=== PATIENT | female | born 1965 | race Caucasian/White ===

== ENCOUNTER 2017-10-07 08:12 | Emergency (ER) | payer OTHER ==
[~2017-10-07] VITALS: Ht 154.9 cm; Wt 88.0 kg
[2017-10-07 08:12] VITALS: BP_SYST 127
[2017-10-07] MEDS ORDERED: EPINEPHrine 1 MG/ML AMP SUBCUT ONE (08:30)
[2017-10-07] MEDS ORDERED: NACL 0.9% 1,000 ML IV ONE (08:45)
[2017-10-07] MEDS ORDERED: methylPREDNISolone SOD SUCC/PF 62.5 MG/ML VIAL IVP ONE (08:45)
[2017-10-07 08:54] LABS: BASOPHILS # (AUTO) 0.1 K/uL (0.0-0.2); BASOPHILS % (AUTO) 1.5 % (0.0-2.0); EOSINOPHILS # (AUTO) 0.4 K/uL (0.0-0.4); EOSINOPHILS % (AUTO) 5.2 % (0.0-4.0); HEMATOCRIT 42.9 % (36-48); LYMPHOCYTES # (AUTO) 2.1 K/uL (1.0-5.5); LYMPHOCYTES % (AUTO) 30.6 % (20.5-51.5); MEAN CORPUSCULAR HEMOGLOBIN 29 pg (27-31); MEAN CORPUSCULAR HGB CONC 33 % (32-36); MEAN CORPUSCULAR VOLUME 88 fL (79.0-98.0); MONOCYTES # (AUTO) 0.5 K/uL (0.0-1.0); MONOCYTES % (AUTO) 7.5 % (1.7-9.3); NEUTROPHILS # (AUTO) 3.9 K/uL (1.8-7.7); NEUTROPHILS % (AUTO) 55.2 % (40.0-70.0); PLATELET COUNT (AUTO) 296 K/uL (130-430); RED BLOOD CELL COUNT(AUTO) 4.88 MIL/uL (4.2-6.2); RED CELL DISTRIBUTION WIDTH 12.8 % (9.0-15.0)
[2017-10-07 09:02] LABS: CALCIUM 8.9 mg/dL (8.4-11.0); CREATININE 0.73 mg/dL (0.55-1.30)
[2017-10-07 09:07] LABS: ALBUMIN 3.7 g/dL (3.4-4.8); TOTAL BILIRUBIN 0.5 mg/dL (0.0-1.0)
[2017-10-07 10:26] VITALS: BP_SYST 109
== END 2017-10-07 10:25 | disposition home or self-care (01) ==
LOC: SED 08:12
DX: T78.1XXA Other adverse food reactions, not elsewhere classified, initial encounter (principal); Z91.018 Allergy to other foods; Z88.8 Allergy status to other drugs, medicaments and biological substances; X58.XXXA Exposure to other specified factors, initial encounter
CPT/HCPCS: 36415; 80053; 85025; 96372; 96374; 99284; J0171; J2930; J7030

== ENCOUNTER 2019-11-02 12:07 | Emergency (ER) | payer OTHER ==
[~2019-11-02] VITALS: Ht 154.9 cm; Wt 87.1 kg
[2019-11-02 12:07] VITALS: BP_SYST 124
--- NOTE | 2019-11-02 12:07 | NUR ---
BROUGHT BACK TO BED #3 AND TRIAGED. REPORT GIVEN TO KYLE
--- NOTE | 2019-11-02 12:25 | NUR ---
Patient c/o of lip swelling and itchiness all over body and head after taking ibuprofen for migraine. Patient does not complain of pain. Patient in no signs of distress. Patient does not state she is experiencing SOB or throat swelling. Patient accompanied by relative.
--- NOTE | 2019-11-02 12:28 | NUR ---
Dr. Galeas at bedside for examination.
[2019-11-02] MEDS ORDERED: DIPHENHYDRAMINE HCL 25 MG CAPSULE PO ONE (12:30)
[2019-11-02] MEDS ORDERED: methylPREDNISolone SOD SUCC/PF 62.5 MG/ML VIAL IM ONE (12:30)
--- NOTE | 2019-11-02 12:55 | NUR ---
Medication administered. Pt tolerated well. No adverse reactions noted.
[2019-11-02 13:07] VITALS: BP_SYST 124
--- NOTE | 2019-11-02 13:07 | NUR ---
Patient given written and verbal discharge instructions and verbalizes understanding. ER MD discussed with patient the results and treatment provided. Patient in stable condition. ID arm band removed. Rx of benadryl and prednisone given. Patient educated on pain management and to follow up with PMD. Pain Scale 0/10. Opportunity for questions provided and answered. Medication side effect fact sheet provided.
== END 2019-11-02 13:07 | disposition home or self-care (01) ==
LOC: SED 12:07
DX: T78.3XXA Angioneurotic edema, initial encounter (principal); R03.0 Elevated blood-pressure reading, without diagnosis of hypertension; Z88.8 Allergy status to other drugs, medicaments and biological substances
CPT/HCPCS: 96372; 99283; J2930; Q0163; J7030

== ENCOUNTER 2022-06-16 19:41 | Emergency (ER) | payer OTHER ==
[~2022-06-16] VITALS: Ht 154.9 cm; Wt 88.0 kg
--- NOTE | 2022-06-16 20:18 | NUR ---
PT FROM HOME WITH C/O LEFT LEG PAIN THAT STARTED YESTERDAY. PT REPORTS NUMBNESS, AND PAIN 10/10. NO REDNESS OR WARMTH NOTED. PT REPORTS PAIN WITH MOVEMENT AND AMBULATUION. DENIES FEELING ANXIOUS AND CHEST PAIN.
[2022-06-16 20:20] VITALS: BP_SYST 138
--- NOTE | 2022-06-16 21:15 | NUR ---
CYNTHIA MURILLO BIB W/ [facility]. C/O LLE, LEFT KNEE PAIN X1 DAY, SINCE SITTING AT [employer]PUTER YESTERDAY. PAIN LEVAL /. DECREASES PAIN WITH LESS MOVEMENT.
--- NOTE | 2022-06-16 21:20 | NUR ---
XRAY AT BEDSIDE. PT DECLINES COLD PACK. WARM BLANKETS APPLIED. PT STATES "FEELS BETTER". DR. ARECHIGA AT BEDSIDE EXAM/ EVAL
[2022-06-16 21:23] LABS: BASOPHILS # (AUTO) 0.1 K/uL (0.0-0.2); BASOPHILS % (AUTO) 0.9 % (0.0-2.0); EOSINOPHILS # (AUTO) 0.3 K/uL (0.0-0.4); EOSINOPHILS % (AUTO) 3.5 % (0.0-4.0); HEMATOCRIT 40.9 % (36-48); HEMOGLOBIN 13.8 g/dL (12.0-16.0); LYMPHOCYTES # (AUTO) 2.6 K/uL (1.0-5.5); LYMPHOCYTES % (AUTO) 29.7 % (20.5-51.5); MEAN CORPUSCULAR HEMOGLOBIN 30 pg (27-31); MEAN CORPUSCULAR HGB CONC 34 % (32-36); MEAN CORPUSCULAR VOLUME 89 fL (79.0-98.0); MONOCYTES # (AUTO) 0.7 K/uL (0.0-1.0); MONOCYTES % (AUTO) 8.2 % (1.7-9.3); NEUTROPHILS # (AUTO) 5.1 K/uL (1.8-7.7); NEUTROPHILS % (AUTO) 57.7 % (40.0-70.0); PLATELET COUNT (AUTO) 261 K/uL (130-430); RED BLOOD CELL COUNT(AUTO) 4.59 MIL/uL (4.2-6.2); RED CELL DISTRIBUTION WIDTH 14.2 % (9.0-15.0); WHITE BLOOD COUNT (AUTO) 8.9 K/uL (4.8-10.8)
[2022-06-16] MEDS ORDERED: KETOROLAC TROMETHAMINE 60 MG/2 ML VIAL IM ONE (21:30)
[2022-06-16] MEDS ORDERED: IBUP-1969 PO (21:41)
[2022-06-16] MEDS ORDERED: HYDR-3917 PO (21:41)
[2022-06-16 22:24] VITALS: BP_SYST 122
--- NOTE | 2022-06-16 22:26 | NUR ---
PT D/C TO HOME WITH SON ELEN. TO LOBBY VIA W/C AND ALL PAPERWORK IN HAND PT VERBALIZES UNDERSTANDING OF AFTERCARERX PICKUP PAIN LEVAL -12/24 TO LEFT KNEE
[2022-06-17 01:07] LABS: CALCIUM 8.5 mg/dL (8.4-11.0); CREATININE 0.75 mg/dL (0.55-1.30); POTASSIUM 4.1 mmol/L (3.5-5.1)
[2022-06-17 01:08] LABS: ALBUMIN 3.7 g/dL (3.4-4.8); C-REACTIVE PROTEIN QUANT 2.4 mg/dL (0-0.5); TOTAL BILIRUBIN 0.4 mg/dL (0.0-1.0); URIC ACID 5.4 mg/dL (2.4-7.0)
== END 2022-06-16 22:24 | disposition home or self-care (01) ==
LOC: SED 19:41
DX: M25.562 Pain in left knee (principal); Z88.8 Allergy status to other drugs, medicaments and biological substances; Z91.048 Other nonmedicinal substance allergy status; Z91.018 Allergy to other foods; Z79.899 Other long term (current) drug therapy
CPT/HCPCS: 99285; 93971; 80053; 84550; 85025; 86140; 36415; 73560; 96372; J1885